=== PATIENT | male | born 1960 | race Caucasian/White ===

== ENCOUNTER 2018-08-04 06:16 | Day surgery (SDC) | payer OTHER ==
[2018-08-02 16:30] VITALS: BP 139/80
[2018-08-04] VITALS (14 sets, daily range): BP systolic 108–140; BP diastolic 48–81
[~2018-08-04] VITALS: Ht 180.3 cm; Wt 90.7 kg
[~2018-08-04 06:16] MED LIST: CEFTRIAXONE SODIUM 1 GM IVP SCH
[2018-08-04] MEDS ORDERED: PROPOFOL 10 MG/ML 20ML VIAL IV ONE (06:47)
[2018-08-04] MEDS ORDERED: LACTATED RINGERS 1000ML 1,000 ML IV ONE (06:47)
[2018-08-04] MEDS ORDERED: LIDOCAINE PF 2% 5ML ABBOJECT ONE (06:47)
[2018-08-04] MEDS ORDERED: FENTANYL CITRATE PF 50 MCG/1 ML 2ML VIAL ONE (06:48)
[2018-08-04] MEDS ORDERED: CEFTRIAXONE SODIUM 1 GM IVP ONE (07:30)
[2018-08-04] MEDS ORDERED: KETOROLAC TROMETHAMINE 30MG/ML ONE (08:54)
[2018-08-04] MEDS ORDERED: MORPHINE SULFATE 4 MG/1ML SYG ONE (08:55)
== END 2018-08-04 10:40 | disposition home or self-care (01) ==
LOC: DAH 06:16
PROVIDERS: ATTEND Urology
DX: N20.0 Calculus of kidney (principal)
CPT/HCPCS: 50590; A4218; A4510; A4600; J0696 ×2; J1885; J2001; J2270; J2704; J3010; J7120

== ENCOUNTER → 2020-11-03 | Outpatient (CLI) | payer OTHER ==
[~2020-11-03] MED LIST changes: -CEFTRIAXONE SODIUM 1 GM IVP SCH; +IOHEXOL-350 50ML VIAL IV ONE
== END | disposition home or self-care (01) ==
LOC: RAH 12:38
PROVIDERS: ATTEND Family Medicine
DX: R22.1 Localized swelling, mass and lump, neck (principal)
CPT/HCPCS: 70491; Q9967

== ENCOUNTER → 2025-03-08 | Outpatient (CLI) | payer OTHER ==
[~2025-03-08] MED LIST changes: -IOHEXOL-350 50ML VIAL IV ONE; +IOHEXOL-350 75 ML VIAL IV ONE
--- NOTE | 2025-03-09 08:18 | HMCIMG ---
EXAM: CT examination of the Brain without and with contrast. CLINICAL HISTORY: Unspecified visual disturbance. TECHNIQUE: Thin collimated axial CT images of the brain were obtained, with sagittal and coronal reformatted images also submitted. A CT scan was done according to ALARA (As low as reasonably achievable). COMPARISON: None provided. FINDINGS: No acute intracranial abnormality is present. No acute cortical infarction, hemorrhage, mass or mass effect. No hydrocephalus or abnormal extra-axial fluid collections. The posterior fossa is unremarkable. The skull base and calvarium are intact. The included portions of the paranasal sinuses and mastoid air cells are clear. IMPRESSION: 1. No acute or chronic intracranial abnormality. /[place]
== END | disposition home or self-care (01) ==
LOC: RAH 11:11
PROVIDERS: ATTEND Family Medicine
DX: H53.9 Unspecified visual disturbance (principal)
CPT/HCPCS: 70470; Q9967